=== PATIENT | male | born 1970 | race Caucasian/White ===

== ENCOUNTER → 2016-08-13 | Outpatient (CLI) | payer OTHER ==
[~2016-08-13] MED LIST: GADOBUTROL 10 ML VIAL IVP ONE; GLUCAGON,HUMAN RECOMBINANT 0.3 MG in SYRINGE 0.3 ML IVP ONE
== END ==
LOC: FIMAGING 06:44
PROVIDERS: ATTEND Internal Medicine Gastroenterology
DX: Z13.818 Encounter for screening for other digestive system disorders (principal); N28.1 Cyst of kidney, acquired
CPT/HCPCS: A9585; J1610